=== PATIENT | female | born 1995 | race African-American/Black ===

== ENCOUNTER 2020-12-30 04:16 | Emergency (ER) | payer SELFPAY ==
[2020-12-30 04:35] VITALS: TEMP 98.2; BMI 31.6
[2020-12-30] MEDS ORDERED: IBUPROFEN 400 MG TABLET (FP) PO ONE ×2 (04:36→04:43)
[2020-12-30 08:22] VITALS: BP 124/49; PULSE 84
== END 2020-12-30 07:55 | disposition home or self-care (01) ==
LOC: JER 04:16
DX: S00.83XA Contusion of other part of head, initial encounter (principal); F10.929 Alcohol use, unspecified with intoxication, unspecified; Y04.8XXA Assault by other bodily force, initial encounter
CPT/HCPCS: 36415; 70450-TC; 70486-TC; 72125-TC; 80307; 99284-25